=== PATIENT | male | born 1950 | race Caucasian/White ===

== ENCOUNTER 2023-06-08 11:44 | Emergency (ER) | payer OTHER ==
[2023-06-08 12:30] LABS: Absolute Lymphocytes (CBC) 1.5 K/uL (0.7-4.9); Hematocrit 41.2 % (39.6-49.0); Lymphocytes % 18.6 % (15.3-44.8); MCV 94.2 fL (80-100); MPV 9.2 fL (7.6-11.3); Platelets 184 thou/uL (152-406); RBC Red Blood Cell Count 4.37 M/uL (4.33-5.43)
[2023-06-08 12:46] LABS: Potassium 3.8 mEq/L (3.5-5.1)
[2023-06-08 13:06] LABS: Troponin High Sensitivity 202.8 pg/mL (<58.9)
--- NOTE | 2023-06-08 13:24 | RAD REPORT ---
EXAM DESCRIPTION: Vitor Single View06/08/2023 1:11 pm CLINICAL HISTORY: Chest pain COMPARISON: 2009 FINDINGS: The lungs are hyperaerated. The lungs appear clear of acute infiltrate. The heart is normal size IMPRESSION: No acute abnormalities displayed
--- NOTE | 2023-06-08 16:01 | ER ---
Nurse's Notes [facility] Name: Jalen Shaw Age: 73 yrs Sex: Male : 1950 Arrival Date: 06/08/2023 Time: 11:44 Bed 5 Private MD: Diagnosis: Chest pain, unspecified Presentation: 06/08 11:57 Chief complaint: EMS states: chest pain while at the [place] [facility], pt had recent heart iw cath last week at [facility], had previous stent opened up , pt reports left sided chest pain. Coronavirus screen: At this time, the client does not indicate any symptoms associated with coronavirus-19. Ebola Screen: Patient negative for fever greater than or equal to 101.5 degrees Fahrenheit, and additional compatible Ebola Virus Disease symptoms Patient denies exposure to infectious person. Patient denies travel to an Ebola-affected area in the 21 days before illness onset. No symptoms or risks identified at this time. 11:57 Method Of Arrival: EMS: [facility] iw 11:57 Acuity: HARRIS 3 iw 11:59 Initial Sepsis Screen: Does the patient meet any 2 criteria? No. Patient's initial iw sepsis screen is negative. Does the patient have a suspected source of infection? No. Patient's initial sepsis screen is negative. Risk Assessment: Do you want to hurt yourself or someone else? Patient reports no desire to harm self or others. Onset of symptoms was June 08, 2023. Historical: - Allergies: 11:59 No Known Allergies; iw - PMHx: 11:59 Myocardial infarction; iw - PSHx: 11:59 cardiac stent X 2; iw - Immunization history:: Adult Immunizations unknown. - Family history:: not pertinent. - Social history:: Smoking status: Patient denies any tobacco usage or history of. - Hospitalizations: : Patient was recently seen at. Screenin:58 [facility] ED Fall Risk Assessment (Adult) History of falling in the last 3 months, rs5 including since admission No falls in past 3 months (0 pts) Confusion or Disorientation No (0 pts) Intoxicated or Sedated No (0 pts) Impaired Gait No (0 pts) Mobility Assist Device Used No (0 pt) Altered Elimination No (0 pt) Score/Fall Risk Level 0 - 2 = Low Risk Oriented to surroundings, Maintained a safe environment. Abuse screen: Denies threats or abuse. Nutritional screening: No deficits noted. Tuberculosis screening: No symptoms or risk factors identified. Assessment: 12:00 Reassessment: Patient and/or family updated on plan of care and expected duration. Pain rs5 level reassessed. Patient is alert, oriented x 3, equal unlabored respirations, skin warm/dry/pink. Patient denies pain at this time. Cardiovascular: Denies chest pain, palpitations. Cardiovascular: Rhythm is sinus bradycardia. Respiratory: Airway is patent Respiratory effort is even, unlabored, Respiratory pattern is regular, symmetrical. 13:04 General: Appears in no apparent distress. Behavior is calm, cooperative. Pain: iw Complains of pain in anterior aspect of left upper chest Pain does not radiate. Pain began Is intermittent. Neuro: Level of Consciousness is awake, alert, obeys commands, Oriented to person, place, time, situation, Moves all extremities. Full function. Cardiovascular: Reports chest pain, Patient's skin is warm and dry. Pulses are all present. Respiratory: Airway is patent Respiratory effort is even, unlabored, Respiratory pattern is regular, symmetrical. GI: Abdomen is non-distended. Derm: Skin is intact. Musculoskeletal: Range of motion: intact in all extremities. 13:49 Reassessment: Patient and/or family updated on plan of care and expected duration. Pain rs5 level reassessed. Patient is alert, oriented x 3, equal unlabored respirations, skin warm/dry/pink. Patient denies pain at this time. 15:00 Reassessment: To bedside for blood draw. rs5 15:00 Reassessment: Patient and/or family updated on plan of care and expected duration. Pain rs5 level reassessed. Patient is alert, oriented x 3, equal unlabored respirations, skin warm/dry/pink. 16:10 Reassessment: Pt states "I don't want to be here anymore, I want to leave" provider rs5 notified. 16:21 Reassessment: Provider at bedside, pt wants to leave against medical advice. rs5 16:22 Reassessment: IV dc'd, pt left AMA before signing paperwork. rs5 Vital Signs: 12:00 BP 123 / 76; Pulse 61; Resp 16; Pulse Ox 99% on R/A; iw 13:04 BP 118 / 69; Pulse 57; Resp 16; Pulse Ox 98% on R/A; iw ED Course: 11:56 Patient arrived in ED. iw 11:57 Kelvin Goddard, GARFIELD is Primary Nurse. rs5 11:58 Samuel Crews MD is Attending Physician. rn 11:58 Patient has correct armband on for positive identification. Fall risk band placed. rs5 Placed in gown. Bed in low position. Call light in reach. Side rails up X2. Client placed on continuous cardiac and pulse oximetry monitoring. NIBP monitoring applied. 11:59 Triage completed. iw 12:04 Patient placed in an exam room. iw 13:05 Provided Education on: . iw 13:05 No provider procedures requiring assistance completed. Patient maintains SpO2 iw saturation greater than 95% on room air. 13:13 XRAY Chest (1 view) In Process Unspecified. EDMS 13:33 Maintain EMS IV. Dressing intact. Good blood return noted. Site clean \\T\\ dry. Gauge \\T\\ iw site: 20 RAC. 14:58 Troponin High Sensitivity: draw at 1500 Sent. rs5 16:09 initiated transfer to [facility]. bd 16:[address] Crews. bd 16:15 IV discontinued, intact, bleeding controlled, No redness/swelling at site. Pressure rs5 dressing applied. Administered Medications: No medications were administered Medication: 12:04 VIS not applicable for this client. iw Outcome: 16:01 ER care complete, transfer ordered by . rn 16:23 Discharged to home ambulatory, rs5 16:23 Discharged to home ambulatory, 16:23 Condition: stable 16:23 Discharge instructions given to patient, family, Pt instructed to return if worsening symptoms 16:24 Patient left the ED. rs5 Signatures: Dispatcher [employer] EDMS Alicia Ugalde Irene, RN RN iw Samuel Crews MD MD rn Sotelo, Ricky, GARFIELD RN rs5 Corrections: (The following items were deleted from the chart) 11:58 11:57 Chief complaint: rs5 rs5 13:49 13:46 Reassessment: Patient and/or family updated on plan of care and expected rs5 duration. Pain level reassessed. Patient is alert, oriented x 3, equal unlabored respirations, skin warm/dry/pink. Patient denies pain at this time. rs5 13:49 13:46 Cardiovascular: Denies chest pain, palpitations, rs5 rs5 13:49 13:46 Respiratory: Airway is patent Respiratory effort is even, unlabored, Respiratory rs5 pattern is regular, symmetrical, rs5 13:49 13:46 Cardiovascular: Rhythm is sinus bradycardia rs5 rs5
--- NOTE | 2023-06-08 16:01 | EDPHYS ---
Physician Documentation [facility] Name: Jalen Shaw Age: 73 yrs Sex: Male : 1950 Arrival Date: 06/08/2023 Time: 11:44 Bed 5 Private MD: ED Physician Samuel Crews HPI: 06/08 12:42 This 73 yrs old Male presents to ER via EMS with complaints of Chest Pain. rn 12:42 The patient or guardian reports chest pain that is located primarily in the anterior rn aspect of left upper chest. Onset: today. The pain does not radiate. Associated signs and symptoms: Pertinent negatives: abdominal pain, cough, diaphoresis, palpitations, shortness of breath, syncope, vomiting. The chest pain is described as aching. Duration: The patient or guardian reports a single episode, that is now resolved. Modifying factors: The symptoms are alleviated by nothing. the symptoms are aggravated by nothing. Severity of pain: At its worst the pain was moderate in the emergency department the pain has resolved. The patient has been recently seen by a physician:. Patient reports admitted recently at [facility], had balloon angioplasty, was discharged this past . States today was at her regular follow-up appointment that had been scheduled prior to recent admission and reported 5 minutes of chest pain so sent here from clinic for evaluation. No meds given by EMS and patient states chest pain has resolved. No shortness of breath. No history of DVT or PE.. Historical: - Allergies: 11:59 No Known Allergies; iw - PMHx: 11:59 Myocardial infarction; iw - PSHx: 11:59 cardiac stent X 2; iw - Immunization history:: Adult Immunizations unknown. - Family history:: not pertinent. - Social history:: Smoking status: Patient denies any tobacco usage or history of. - Hospitalizations: : Patient was recently seen at. ROS: 12:42 Constitutional: Negative for fever, chills, and weight loss, Cardiovascular: Positive rn for chest pain Respiratory: Negative for shortness of breath, cough, wheezing, and pleuritic chest pain, Abdomen/GI: Negative for abdominal pain, nausea, vomiting, diarrhea, and constipation, Back: Negative for injury and pain, MS/Extremity: Negative for injury and deformity, Skin: Negative for injury, rash, and discoloration, Neuro: Negative for headache, weakness, numbness, tingling, and seizure, Exam: 12:42 Constitutional: This is a well developed, well nourished patient who is awake, alert, rn and in no acute distress. Cardiovascular: Regular rate and rhythm. No pulse deficits. Respiratory: No increased work of breathing, no retractions or nasal flaring. Abdomen/GI: Soft, non-tender Skin: Warm, dry MS/ Extremity: Pulses equal, no cyanosis. Equal circumference Neuro: Awake and alert, GCS 15 12:45 ECG was reviewed by the Attending Physician. rn Vital Signs: 12:00 BP 123 / 76; Pulse 61; Resp 16; Pulse Ox 99% on R/A; iw 13:04 BP 118 / 69; Pulse 57; Resp 16; Pulse Ox 98% on R/A; iw MDM: 11:58 Patient medically screened. rn 13:05 The patient was not given aspirin in the Emergency Department. Patient reports taking rn aspirin within the past 24 hours. 13:06 ED course: Patient given aspirin in clinic prior to EMS arrival today.. rn 16:00 Differential diagnosis: acute myocardial infarction, acute pericarditis, coronary rn artery disease chest wall pain, costochondritis, esophagitis, gastritis, pleurisy, pneumonia, pneumothorax, stable angina, unstable angina. Data reviewed: vital signs, nurses notes, lab test result(s), EKG, radiologic studies, plain films, and as a result, I will admit patient. Consideration of Admission/Observation Patient was admitted/placed on observation. Escalation of care including admission/observation considered. ED course: Repeat troponin 204 from 202, essentially the same but not downtrending. Patient chest pain-free. Will initiate transfer to [facility] given no chest pain and elevated troponin. Will defer ultimate disposition to patient's child and family services specialist.. 16:21 ED course: Once transfer initiated, patient decided that he was leaving, declined corporate development intern, did not want to wait for me to speak to the child and family services specialist, patient signed out AMA and understands risks. Patient states that is his body and he thinks he is okay. Given return precautions and understands if chest pain returns or worsens needs to be reevaluated. Family member in room the entire time, she is against him leaving AMA but he is making his own decision.. 06/08 11:59 Order name: Basic Metabolic Panel; Complete Time: 13:13 rn 06/08 11:59 Order name: CBC with Diff; Complete Time: 12:42 rn 06/08 11:59 Order name: NT PRO-BNP; Complete Time: 13:13 rn 06/08 11:59 Order name: Troponin HS; Complete Time: 13:13 rn 06/08 14:06 Order name: Troponin High Sensitivity: draw at 1500; Complete Time: 15:52 rn 06/08 11:59 Order name: XRAY Chest (1 view); Complete Time: 13:25 rn 06/08 11:59 Order name: EKG; Complete Time: 11:59 rn 06/08 11:59 Order name: Cardiac monitoring; Complete Time: 12:04 rn 06/08 11:59 Order name: EKG - Nurse/Tech; Complete Time: 12:04 rn 06/08 11:59 Order name: IV Saline Lock; Complete Time: 12:04 rn 06/08 11:59 Order name: Labs collected and sent; Complete Time: 12:04 rn 06/08 11:59 Order name: O2 Per Protocol; Complete Time: 12:04 rn 06/08 11:59 Order name: O2 Sat Monitoring; Complete Time: 12:04 rn EC:45 Rate is 50 beats/min. Rhythm is regular. QRS Leiter is Normal. FL interval is normal. QRS rn interval is normal. QT interval is normal. No Q waves. T waves are Normal. No ST changes noted. Clinical impression: Sinus bradycardia. Interpreted by me. Reviewed by me. Administered Medications: No medications were administered Disposition Summary: 06/08/23 16:21 Left Against Medical Advice Notes: Location: Home rn Problem: new(06/08/23 16:21) rn Symptoms: are resolved(06/08/23 16:21) rn Condition: Stable(06/08/23 16:21) rn Diagnosis - Chest pain, unspecified(06/08/23 16:21) rn Followup: rn - With: Private Physician - When: As needed - Reason: Recheck today's complaints, Re-evaluation by your physician Discharge Instructions: - Discharge Summary Sheet rn - Nonspecific Chest Pain, Adult rn Signatures: Dispatcher [employer] Bernie Vivar RN [place] iw Samuel Crews MD MD rn Sotelo, Ricky RN RN rs5 Corrections: (The following items were deleted from the chart) 16: rn rn 16:01 [facility]-System rn rn 16:01 Higher level of care rn rn 16: Stable rn rn 16: new rn rn 16: have improved rn rn 16: Chest pain, unspecified rn rn 16:01 Elevated troponin rn rn
[2023-06-08 16:30] VITALS: BP 118/69; O2SAT 98
--- NOTE | 2023-06-09 13:43 | EKG ---
Test Date: 2023-06-08 Test Time: 11:51:36 Litigation Legal Secretary: RAUL MEASUREMENT RESULTS: Intervals: Rate: 50 MI: 182 QRSD: 100 QT: 462 QTc: 421 [place]: P: 45 MI: 182 QRS: 9 T: 33 INTERPRETIVE STATEMENTS: Sinus bradycardia Septal infarct, age undetermined Abnormal ECG No previous ECG available for comparison Electronically Signed On 06-09-23 13:39:51 COMPENSATOR WORKER by Juan Francisco Maddox
== END 2023-06-08 16:24 | disposition left against medical advice (07) ==
LOC: ER 11:44
DX: R07.9 Chest pain, unspecified (principal); I25.2 Old myocardial infarction; Z95.818 Presence of other cardiac implants and grafts
CPT/HCPCS: 36415; 71045; 80048; 83880; 84484; 85025; 93005; 99284